=== PATIENT | female | born 1960 | race Caucasian/White ===

== ENCOUNTER → 2023-10-08 11:22 | Outpatient (BNVA) | payer MEDICARE, SELFPAY | PROVIDERS: PCP Nurse Practitioner Family; Visit Provider Internal Medicine Rheumatology | DX: Z11.1 Encounter for screening for respiratory tuberculosis (principal); Z11.59 Encounter for screening for other viral diseases; Z79.899 Other long term (current) drug therapy; M19.90 Unspecified osteoarthritis, unspecified site; R76.8 Other specified abnormal immunological findings in serum | CPT/HCPCS: 36415; 73130; 73562; 73630; 80076; 81001; 82306; 82565; 85025; 85613; 85651; 85730; 86021; 86036; 86146; 86147; 86160; 86162; 86200; 86235; 86255; 86376; 86431; 86480; 86704; 86800; 86803; 87340; 99205 ==

== ENCOUNTER 2023-11-04 11:42 | Outpatient (CLI) | payer MEDICARE, SELFPAY ==
[2023-11-05 22:19] LABS: Lupus DRVVT Confirm NEGATIVE (NEGATIVE); Lupus Hexagonal Phas Confirm POSITIVE (NEGATIVE); Lupus Thrombin Clotting Time 19 sec (13-19)
[2023-11-05 22:29] LABS: PTT-LA-Screen 57 sec (< OR = 40)
== END 2023-11-04 11:43 | disposition home or self-care (01) ==
LOC: LAB 11:48
PROVIDERS: PCP Nurse Practitioner Family; Visit Provider Internal Medicine Rheumatology
DX: M19.90 Unspecified osteoarthritis, unspecified site (principal); Z79.899 Other long term (current) drug therapy
CPT/HCPCS: 36415; 85613; 85730

== ENCOUNTER → 2024-01-11 11:01 | Outpatient (BNVA) | payer MEDICARE, SELFPAY | PROVIDERS: PCP Nurse Practitioner Family; Visit Provider Internal Medicine Rheumatology | DX: Z79.899 Other long term (current) drug therapy (principal); M19.90 Unspecified osteoarthritis, unspecified site; H34.8392 Tributary (branch) retinal vein occlusion, unspecified eye, stable; H54.8 Legal blindness, as defined in USA; R76.0 Raised antibody titer | CPT/HCPCS: 99214 ==